=== PATIENT | male | born 1955 | race Caucasian/White ===

== ENCOUNTER 2017-02-20 00:52 | Inpatient (IN) | payer OTHER ==
[2017-02-20] VITALS (15 sets, daily range): BP systolic 143–199; BP diastolic 70–109
[~2017-02-20] VITALS: Ht 175.3 cm; Wt 80.9 kg
[~2017-02-20 00:52] MED LIST: ASPIR-TRIN325 M1 PO; Lopressor PO; NOHOMEMEDS; Zocor PO
[2017-02-20 01:16] LABS: EOSINOPHIL (%) 2.2 % (0-5); EOSINOPHIL COUNT 0.2 K/uL (0-0.3); HEMATOCRIT 46.3 % (38.0-50.0); IMMATURE GRANULOCYTE (%) 0.2 % (0.0-0.7); LYMPHOCYTE COUNT 3.2 K/uL (1.0-2.8); MCH 30.4 PG (29.0-34.0); MCHC 33.7 G/DL (30.0-36.0); MCV 90.1 FL (86-99); MEAN PLAT.VOLUME 9.7 uM^3 (9.0-12.4); MONOCYTE (%) 8.4 % (3-12); MONOCYTE COUNT 0.7 K/uL (0-0.8); NEUTROPHIL (%) 49.1 % (45-76); PLATELET COUNT 172 K/uL (156-360); RBC DIS.WIDTH-CV 13.2 % (11.8-14.6); RED BLOOD COUNT 5.14 M/uL (4.00-5.50); WHITE BLOOD COUNT 8.1 K/uL (4.1-10.2)
[2017-02-20 01:22] LABS: PROTHROMBIN TIME 10.9 SEC (10.2-12.9)
[2017-02-20 01:24] LABS: AMYLASE 84 IU/L (1-118); CHLORIDE 102 mEq/L (99-109); POTASSIUM 3.8 mEq/L (3.7-5.4); PTT 26.1 SEC (25-37); SODIUM 138 mEq/L (136-147)
[2017-02-20 01:25] LABS: GLUCOSE 186 mg/dL (70-99)
[2017-02-20 01:27] LABS: ANION GAP 10 MEQ/L (2-14)
[2017-02-20 01:28] LABS: SERUM ETHYL ALCOHOL < 10 mg/dL
[2017-02-20 01:29] LABS: GFR ESTIMATE (CALCULATED) > 59 mL/min/
[2017-02-20 01:30] LABS: UREA NITROGEN (BUN) 16 mg/dL (9-23)
[2017-02-20 01:32] LABS: LIPASE 52 U/L (1.0-51.0)
[2017-02-20 01:36] LABS: TROP-I INTERPRETATION POSITIVE
[2017-02-20 01:37] LABS: TROPONIN-I 0.67 ng/mL (0.0-0.30)
[2017-02-20 06:12] LABS: METH RESISTANT S AUREUS PCR NEGATIVE (NEGATIVE); PROBE CHECK PASS; SPECIMEN PROCESSING CONTROL PASS
[2017-02-20 11:58] LABS: ANION GAP 6 MEQ/L (2-14); CHLORIDE 104 MEQ/L (99-109); GFR ESTIMATE (CALCULATED) > 59 mL/min/; GLUCOSE 171 mg/dL (70-99); HDL CHOLESTEROL 29 MG/DL (Desirable>=40); LDL CHOLESTEROL 98 mg/dL (Desirable<100); NON-HDL CHOLESTEROL 124 mg/dL (Desirable<160); SAMPLE HEMOLYSIS CHECK 0; SAMPLE ICTERIC CHECK 0; SAMPLE LIPEMIA CHECK 0; SODIUM 135 MEQ/L (136-147); TOTAL CHOLESTEROL 153 mg/dL (Desirable<200); TRIGLYCERIDES 131 MG/DL (Normal: <150); UREA NITROGEN (BUN) 11 mg/dL (9-23)
[2017-02-20 12:30] LABS: TROPONIN-I 74.44 ng/mL (0.0-0.30)
[2017-02-20 12:31] LABS: TROP-I INTERPRETATION POSITIVE
[2017-02-20 12:46] LABS: CREATINE KINASE 1728 IU/L (1-294); TOTAL CK 1728 IU/L (1-294)
[2017-02-20 12:56] LABS: CK-MB 192.9 ng/mL (0.0-4.9)
[2017-02-20] MEDS ORDERED: LIPITOR80 MG PO (15:13)
[2017-02-20] MEDS ORDERED: LISINOPRIL20 MG PO (15:13)
[2017-02-20] MEDS ORDERED: GLUCOPHAGE500 MG PO (15:13)
[2017-02-20] MEDS ORDERED: ASPIRIN325 MG PO (15:14)
[2017-02-20] MEDS ORDERED: SLO-NIACIN500 MG PO (15:14)
[2017-02-20] MEDS ORDERED: METOPROLOL TART50 MG PO (15:14)
[2017-02-20 22:11] LABS: Estimated Average Glucose 148 mg/dL (70-123); HEMOGLOBIN A1c (GLYCOHEMOGLOB) 6.8 % HGB (Below 5.7)
[2017-02-21] VITALS (8 sets, daily range): BP systolic 131–166; BP diastolic 67–83
[2017-02-21 01:12] LABS: TOTAL CK 1076 IU/L (1-294)
[2017-02-21 01:17] LABS: CREATINE KINASE 1076 IU/L (1-294)
[2017-02-21 01:18] LABS: TROP-I INTERPRETATION POSITIVE
[2017-02-21 01:19] LABS: CK-MB 77.7 ng/mL (0.0-4.9)
[2017-02-21 01:20] LABS: TROPONIN-I 35.46 ng/mL (0.0-0.30)
[2017-02-21 07:46] LABS: HEMATOCRIT 43.5 % (38.0-50.0); MCH 30.6 PG (29.0-34.0); MCHC 33.6 G/DL (30.0-36.0); MCV 91.2 FL (86-99); MEAN PLAT.VOLUME 9.7 uM^3 (9.0-12.4); PLATELET COUNT 139 K/uL (156-360); RBC DIS.WIDTH-CV 13.3 % (11.8-14.6); RBC DIS.WIDTH-SD 45.1 % (39-53); RED BLOOD COUNT 4.77 M/uL (4.00-5.50); WHITE BLOOD COUNT 12.4 K/uL (4.1-10.2)
[2017-02-21 08:09] LABS: ALKALINE PHOSPHATASE 72 IU/L (3-129); ANION GAP 7 MEQ/L (2-14); CHLORIDE 105 MEQ/L (99-109); GFR ESTIMATE (CALCULATED) > 59 mL/min/; GLUCOSE 129 mg/dL (70-99); POTASSIUM 4.2 MEQ/L (3.7-5.4); SAMPLE HEMOLYSIS CHECK 0; SAMPLE ICTERIC CHECK 0; SAMPLE LIPEMIA CHECK 0; SODIUM 140 MEQ/L (136-147); TOTAL BILIRUBIN 0.8 MG/DL (0.0-1.0); UREA NITROGEN (BUN) 9 mg/dL (9-23)
[2017-02-21 13:38] LABS: CREATINE KINASE 547 IU/L (1-294); TOTAL CK 547 IU/L (1-294)
[2017-02-21 14:51] LABS: CK-MB 33.8 ng/mL (0.0-4.9)
[2017-02-22] VITALS: BP 142/70
[2017-02-22 04:00] VITALS: BP 140/79
[2017-02-22 07:25] LABS: ANION GAP 10 MEQ/L (2-14); CHLORIDE 103 MEQ/L (99-109); GFR ESTIMATE (CALCULATED) > 59 mL/min/; GLUCOSE 134 mg/dL (70-99); POTASSIUM 3.9 MEQ/L (3.7-5.4); SAMPLE HEMOLYSIS CHECK 0; SAMPLE ICTERIC CHECK 0; SAMPLE LIPEMIA CHECK 0; SODIUM 137 MEQ/L (136-147); UREA NITROGEN (BUN) 12 mg/dL (9-23)
[2017-02-22 08:00] VITALS: BP 0/0; BP 113/52; BP 144/80
[2017-02-22 10:00] VITALS: BP 148/78
[2017-02-22] MEDS ORDERED: ASPIR-LOW81 MG PO (10:32)
[2017-02-22] MEDS ORDERED: GLUCOPHAGE500 MG PO (10:32)
[2017-02-22] MEDS ORDERED: METOPROLOL TART50 MG PO (10:32)
[2017-02-22] MEDS ORDERED: NITROSTAT0.4 MG SL (10:32)
[2017-02-22] MEDS ORDERED: LISINOPRIL40 MG PO (10:32)
[2017-02-22] MEDS ORDERED: EFFIENT10 MG PO (10:32)
[2017-02-22] MEDS ORDERED: LIPITOR80 MG PO (10:32)
[2017-02-22 12:00] VITALS: BP 146/91
== END 2017-02-22 13:05 | disposition home or self-care (01) | DRG 247 ==
LOC: EME 00:52 → CATH 01:34 → 2SOUTH 03:56 → 4WEST 03:56 → ENRESERV 04:10 → 4WEST 04:17 → ENRESERV 02-21 11:11 → 4WEST 02-22 13:05
PROVIDERS: Emergency Medicine; Internal Medicine Cardiovascular Disease; Internal Medicine Interventional Cardiology; Physician Assistant Medical
PROC: B2151ZZ Fluoroscopy of Left Heart using Low Osmolar Contrast (ICD-10-PCS; principal; 2017-02-20)
PROC: B2131ZZ Fluoroscopy of Multiple Coronary Artery Bypass Grafts using Low Osmolar Contrast (ICD-10-PCS; principal; 2017-02-20)
PROC: 4A023N7 Measurement of Cardiac Sampling and Pressure, Left Heart, Percutaneous Approach (ICD-10-PCS; principal; 2017-02-20)
PROC: B2111ZZ Fluoroscopy of Multiple Coronary Arteries using Low Osmolar Contrast (ICD-10-PCS; principal; 2017-02-20)
PROC: 027036Z Dilation of Coronary Artery, One Artery with Three Drug-eluting Intraluminal Devices, Percutaneous Approach (ICD-10-PCS; principal; 2017-02-20)
DX: I21.19 ST elevation (STEMI) myocardial infarction involving other coronary artery of inferior wall (principal); I82.B19 Acute embolism and thrombosis of unspecified subclavian vein; I25.10 Atherosclerotic heart disease of native coronary artery without angina pectoris; I10 Essential (primary) hypertension; E78.5 Hyperlipidemia, unspecified; F17.210 Nicotine dependence, cigarettes, uncomplicated; Z95.5 Presence of coronary angioplasty implant and graft; Z90.5 Acquired absence of kidney; Z95.1 Presence of aortocoronary bypass graft; Z79.82 Long term (current) use of aspirin; I25.2 Old myocardial infarction
CPT/HCPCS: 71010; 80048; 80048 91; 80053; 80061; 81003; 82150; 82550; 82550 91; 82553; 83036; 83690; 84484; 85025; 85027; 85610; 85730; 86850; 86900; 86901; 87641; 93005; 93306; 99281; 99285; C1725; C1760; C1769; C1874; C1887; C1894; G0480; J0153; J0461; J1644; J1940; J2250; J2270; J2405; J3010; J3246; J7030; J7050

== ENCOUNTER 2017-08-25 06:57 | Emergency (ER) | payer OTHER ==
[~2017-08-25] VITALS: Ht 175.3 cm; Wt 82.8 kg
[~2017-08-25 06:57] MED LIST changes: +ASPIR-LOW81 MG PO; +ASPIRIN325 MG PO; +EFFIENT10 MG PO; +GLUCOPHAGE500 MG PO; +LIPITOR80 MG PO; +LISINOPRIL20 MG PO; +LISINOPRIL40 MG PO; +METOPROLOL TART50 MG PO; +NITROSTAT0.4 MG SL; +SLO-NIACIN500 MG PO
[2017-08-25] MEDS ORDERED: PERCOCET 5/31 TABLET PO (09:50)
[2017-08-25 10:24] VITALS: BP 170/80
== END 2017-08-25 10:25 | disposition home or self-care (01) ==
LOC: EME 06:57
PROC: 2W3QX1Z Immobilization of Right Lower Leg using Splint (ICD-10-PCS; principal; 2017-08-25)
DX: S82.831A Other fracture of upper and lower end of right fibula, initial encounter for closed fracture (principal); W10.9XXA Fall (on) (from) unspecified stairs and steps, initial encounter; K21.9 Gastro-esophageal reflux disease without esophagitis; I10 Essential (primary) hypertension; F41.9 Anxiety disorder, unspecified; F32.9 Major depressive disorder, single episode, unspecified; I25.2 Old myocardial infarction; F17.200 Nicotine dependence, unspecified, uncomplicated; Z95.1 Presence of aortocoronary bypass graft; Z98.61 Coronary angioplasty status
CPT/HCPCS: 73590; 99281; 99283